=== PATIENT | female | born 1975 | race Two or more races ===

== ENCOUNTER 2019-10-02 12:20 | Inpatient (IN) | payer OTHER ==
[~2019-10-02] VITALS: Ht 157.5 cm; Wt 68.0 kg
--- NOTE | 2019-10-02 12:45 | NUR ---
cough, congestion, with shortness of breath x 7 days; c/o fever as well the patient takes PO motrin as needed; pt to bed 6, placed on monitor, noted with sob; placed on nc 4lpm sating above 95%. -cp, pending er provider alyson
[2019-10-02] MEDS ORDERED: CEFTRIAXONE 1GM BAG (ER ONLY) 1 GM/50 ML PIGGYBACK IV ONE (15:00)
[2019-10-02] MEDS ORDERED: AZITHROMYCIN 500 MG in IV D5W 250 ML IV SCH (15:00)
[2019-10-02] MEDS ORDERED: CEFTRIAXONE 2 G in IV D5W 100 ML IV ONE (15:00)
--- NOTE | 2019-10-02 15:21 | NUR ---
PAGED [facility].
[2019-10-02 15:57] LABS: BASOPHILS % (AUTO) 0.4 % (0.0-2.0); EOSINOPHILS % (AUTO) 0.2 % (0.0-6.0); HEMATOCRIT 37 % (33-45); HEMOGLOBIN 12.3 g/dL (11.5-14.8); LYMPHOCYTES # (AUTO) 0.7 /CMM (0.8-4.8); MEAN CORPUSCULAR HGB CONC 33 g/dl (31.0-36.0); MEAN CORPUSCULAR VOLUME 78 fL (82-100); MONOCYTES # (AUTO) 0.3 /CMM (0.1-1.30); MONOCYTES % (AUTO) 5.6 % (2.0-12.0); NEUTROPHILS # (AUTO) 4.9 /CMM (1.8-8.9); NEUTROPHILS % (AUTO) 81.8 % (43.0-81.0); PLATELET COUNT (AUTO) 145 /CMM (150-450); RED BLOOD CELL COUNT(AUTO) 4.75 MIL/uL (4.0-5.2)
[2019-10-02 16:19] LABS: CALCIUM, SERUM 8.9 mg/dL (8.5-10.1); CARBON DIOXIDE 27 mmol/L (21-32); CHLORIDE 102 mmol/L (98-107); CREATININE 0.8 mg/dL (0.6-1.3); GLUCOSE 117 mg/dL (74-106); POTASSIUM 3.5 mmol/L (3.5-5.1); SODIUM SERUM 140 mmol/L (136-145); UREA NITROGEN, BLOOD 9 mg/dL (7-18)
[2019-10-02 16:23] LABS: BILIRUBIN,TOTAL 0.3 mg/dL (0.2-1.0)
[2019-10-02 16:24] LABS: ALANINE AMINOTRANSFERASE 40 U/L (12-78); ALBUMIN 3.4 g/dL (3.4-5.0); ALKALINE PHOSPHATASE 111 U/L (46-116); ASPARTATE AMINOTRANSFERASE 25 U/L (15-37); B-TYPE NATRIURETIC PEPTIDE 89 PG/ML (0-125); TOTAL PROTEIN, SERUM 7.8 g/dL (6.4-8.2)
[2019-10-02 16:29] LABS: D-DIMER 0.91 mg/L(FEU (0.17-0.50)
[2019-10-02 16:32] LABS: BILIRUBIN,URINE Negative (NEGATIVE); BLOOD, URINE Large Ery/uL (NEGATIVE); COLOR,URINE Yellow (YELLOW); KETONES,URINE Negative (NEGATIVE); LEUKOCYTE ESTERASE ,URINE Negative (NEGATIVE); NITRITE, URINE Negative (NEGATIVE); PROTEIN,URINE 30 mg/dl (NEGATIVE); UGLUCOSE Negative (NEGATIVE); UROBILINOGEN,URINE 0.2 EU/dL (0.2)
[2019-10-02 16:34] LABS: APPEARANCE,URINE SLIGHTLY CLOUDY (CLEAR)
[2019-10-02 16:36] LABS: BACTERIA,URINE None seen /HPF (None Seen); RBC,URINE 81-100 /HPF (0-2); SQUAMOUS EPITHELIAL CELL,UR Few /HPF (None Seen); WBC,URINE 0-2 /HPF (0-3)
[2019-10-02] MEDS ORDERED: METO25TA20 PO (16:51)
[2019-10-02] MEDS ORDERED: LURA40TA PO (16:51)
[2019-10-02] MEDS ORDERED: ALOG25TA2 PO (16:51)
[2019-10-02] MEDS ORDERED: ATOR10TA PO (16:51)
[2019-10-02] MEDS ORDERED: METF-440 PO (16:51)
[2019-10-02] MEDS ORDERED: IBUP-1953 PO (16:51)
[2019-10-02] MEDS ORDERED: INSU100I26 SQ (16:51)
--- NOTE | 2019-10-02 17:06 | NUR ---
NURSING SUP GAVE 104.
[2019-10-02 17:15] LABS: CREATINE KINASE, TOTAL 45 U/L (26-192); FERRITIN 164 ng/mL (8-388)
[2019-10-02 17:17] LABS: C-REACTIVE PROTEIN 16.5 mg/dL (0.0-0.9)
[2019-10-02] MEDS ORDERED: LURA80TA PO (17:24)
--- NOTE | 2019-10-02 17:43 | NUR ---
REPORT GIVEN TO MELO MCCRAY FOR LUCIA PT WILL BE TRANSPORTED TO 1ST FLOOR
--- NOTE | 2019-10-02 17:45 | NUR ---
FLORAL ARRANGER NOTES RECEIVED PT FROM E.R. STAFF VIA WHEELCHAIR, ASSISTED TO BED, MADE COMFORTABLE, PT IS AWAKE, ALERT AND ORIENTED, MAINLY ROMANIAN SPEAKING, NO COMPLAINT OF PAIN, NOT IN DISTRESS, VITAL SIGNS TAKEN AND RECORDED, PLACED ON ISOLATION PRECAUTIONS, NEEDS ATTENDED, AWAITING ADMITTING ORDERS FROM MD.
[2019-10-02 18:00] VITALS: BP 130/68
[2019-10-02 18:50] VITALS: BP 127/62
--- NOTE | 2019-10-02 19:30 | NUR ---
RN OPENING NOTES, PATIENT AWAKE AT THIS TIME, A/O X4, ABLE TO VERBALIZED NEEDS AND CONCERNS, JAPANESE SPEAKING, ST IN TELE MONITOR WITH HR LOW 100S AT THIS TIME, BREATHING EVEN AND UNLABORED, NO S/S OF SOB/ACUTE DISTRESS NOTED AT THIS TIME, LEFT AC PIV LINE IN PLACED 18G PATENT AND INTACT, AMBULATORY, WITH BRP PRIVILEGES, ON ISOLATION PRECAUTIONS FOR R/O COVID 19, AWAITING FOR RESULTS, SAFETY MEASURES MAINTAINED, BED LOCKED AND LOWEST POSITION, CALL LIGHT WITHIN REACH, SIDE RAILS UP X, ALL NEEDS ATTENDED, WILL CONTINUE TO MONITOR PATIENT CLOSELY.
--- NOTE | 2019-10-02 19:40 | NUR ---
RN NOTES, PLACED PATIENT ON CONTINUOS O2 MACHINE TO MONITOR, AND PATIENT NOTED WITH SOB/COUGHING A LOT AND STATING HAVING TROUBLE BREATHING,PATIENT PLACED ON 2LMP VIA NC, WILL CONTINUE TO MONITOR CLOSELY.
[2019-10-02 20:00] VITALS: BP 119/77
--- NOTE | 2019-10-02 20:00 | NUR ---
RN NOTES, PATIENT STATES FEELING LITTLE BIT BETTER WITH O2, BUT STILL WITH SOB WHILE TAKING, WILL CONTINUE TO MONITOR CLOSELY.
[2019-10-02] MEDS: HYDROXYCHLOROQUINE 200 MG TABLET PO SCH (20:36)
--- NOTE | 2019-10-02 23:50 | NUR ---
RN NOTES Received patient transferred from [facility] to [facility] 203 via hospital bed. On O2 via NC @ 2LPN, no respiratory distress noted at this time. Patient denies any discomfort at this time. On tele monitor, with NSR noted. Kept on bed clean, dry and comfortable. On fall and aspiration precautions. Will continue to monitor accordingly.
--- NOTE | 2019-10-02 23:54 | NUR ---
RN NOTES, PATIENT TRANSFERRED TO [facility] 2 OVER FLOW ROOM 203, VIA BED WITH ALL ACLS PROTOCOL, AND O2 PATIENT A/O X4 NO CHANGE IN CONDITION, AWARE THAT SHES BEING TRANSFERRED TO ANOTHER FLOOR, NO SOB/ACUTE DISTRESS AT THIS TIME CONTINUE WITH PERSISTENT COUGH, SOB WHEN TALKING, AFEBRILE REPORT GIVEN TO MELO ARREGUIN WELL ENDORSED PATIENT FOR CONTINUITY GRIS CARE.
[2019-10-03] VITALS: BP 110/65
[2019-10-03 04:00] VITALS: BP 106/62
--- NOTE | 2019-10-03 06:26 | NUR ---
RN CLOSING NOTES Patient asleep, easily awaken. On O2 inhalation via NC @ 2LPM, saturating well. Patient denies any discomfort at this time. On tele with NSR noted. All nursing needs attended. Kept on bed clean, dry and comfortable. No new complaints made. Endorsed.
--- NOTE | 2019-10-03 07:26 | NUR ---
rn opening notes Patient received on 2L nasal cannula, no sob noted, a/o x4, L ac 18 gauge SL. Bed at the lowest setting, call light within reach, side rails up x2.
[2019-10-03 07:40] LABS: BASOPHILS % (AUTO) 0.3 % (0.0-2.0); EOSINOPHILS % (AUTO) 0.5 % (0.0-6.0); HEMATOCRIT 35 % (33-45); HEMOGLOBIN 11.9 g/dL (11.5-14.8); LYMPHOCYTES % (AUTO) 15.8 % (20.0-44.0); MEAN CORPUSCULAR HGB CONC 34 g/dl (31.0-36.0); MEAN CORPUSCULAR VOLUME 77 fL (82-100); MONOCYTES # (AUTO) 0.4 /CMM (0.1-1.30); NEUTROPHILS # (AUTO) 4.9 /CMM (1.8-8.9); NEUTROPHILS % (AUTO) 77.4 % (43.0-81.0); PLATELET COUNT (AUTO) 154 /CMM (150-450); RED BLOOD CELL COUNT(AUTO) 4.57 MIL/uL (4.0-5.2); WHITE BLOOD COUNT (AUTO) 6.3 K/uL (4.3-11.0)
[2019-10-03 08:01] LABS: CALCIUM, SERUM 8.8 mg/dL (8.5-10.1); CREATININE 0.7 mg/dL (0.6-1.3); MAGNESIUM 1.8 mg/dL (1.8-2.4); PHOSPHORUS 3.4 mg/dL (2.5-4.9); POTASSIUM 3.3 mmol/L (3.5-5.1)
[2019-10-03] MEDS ORDERED: POTASSIUM CHLORIDE 20 MEQ TAB.PRT.SR PO SCH (09:00)
[2019-10-03] MEDS: ACETAMINOPHEN 650 MG/20.3 ML UDC NG PRN ×2 (09:06→20:24)
[2019-10-03] MEDS: HYDROXYCHLOROQUINE 200 MG TABLET PO SCH ×2 (09:06→19:47)
[2019-10-03 09:54] LABS: CHOLESTEROL 136 mg/dL (<200); HDL CHOLESTEROL 47 mg/dL (40-60); IRON, SERUM 16 ug/dl (50-175); LDL 53 mg/dL (0-99); TOTAL IRON BINDING CAPACITY 245 ug/dl (250-450)
[2019-10-03 10:11] LABS: TRIGLYCERIDES 241 mg/dL (30-150)
[2019-10-03 12:30] VITALS: BP 106/60
[2019-10-03] MEDS: AZITHROMYCIN 500 MG in IV D5W 250 ML IV SCH (14:59)
[2019-10-03 15:30] VITALS: BP 123/72
[2019-10-03] MEDS: CEFTRIAXONE 1 G in IV D5W 50 ML IV SCH (16:27)
--- NOTE | 2019-10-03 18:19 | NUR ---
rn notes patient moved to 202 for negative air room.
--- NOTE | 2019-10-03 18:23 | NUR ---
rn closing notes Patient moved to 202-1. Patient is positive for COVID 19, remains on 2L nasal cannula, no sob noted. ambulatory with good balance. L AC 18 gauge SL. continue abx at this time. Bed at the lowest setting, call light within reach, side rails up x2. Will give report to NOC RN for LUCIA bedside.
--- NOTE | 2019-10-03 19:00 | NUR ---
RN OPENING NOTES Received patient awake on bed. On O2 inhalation via NC @ 2LPM, saturating well. With dry cough noted. Afebrile at this time. Kept on bed clean, dry and comfortable. On tele monitor with NSR noted. Call light within easy reach. On fall and aspiration precautions. Will continue to monitor accordingly.
--- NOTE | 2019-10-03 19:00 | NUR ---
RN NOTES Received patient A/O x4, awake on bed on O2 inhalation via NC @ 2LPM, saturating well. With complaints of headache, Tylenol given as ordered. On tele monitor with NSR noted. On negative pressure room, contact/airborne isolation. Kept on bed clean, dry and comfortable. Call light within easy reach. Will continue to monitor accordingly.
[2019-10-03 22:29] VITALS: BP 108/68
--- NOTE | 2019-10-03 23:50 | NUR ---
RN NOTES Received patient from [facility] transferred to [facility] 203 via hospital bed accompanied by 2 hospital staff. Patient complaint epigastric pain 01/26. Patient noted able to ambulate to bathroom without assistance needed. On NPO as ordered. With peripheral IV line RAC#20. Resume IN NV @ 100ml/hr as ordered. Administed Morphine for pain as ordered. Kept on bed clean, dry and comfortable. Call light within easy reach. On fall and aspiration precautions. Will continue to monitor accordingly. Addendum: 10/04/19 at 0026 by RODRÍGUEZ DURHAM RN WRONG ENTRY.
[2019-10-04] VITALS: BP 102/58
[2019-10-04] MEDS: ACETAMINOPHEN 650 MG/20.3 ML UDC NG PRN ×2 (02:59→23:10)
--- NOTE | 2019-10-04 06:33 | NUR ---
RN CLOSING NOTES Patient asleep, easily awaken. On O2 inhalation via NC @ 2 LPM, saturating 100%. With dry cough noted, patient claimed having headache when coughing a lot. PRN meds given as ordered. All nursing needs attended. Due meds given as ordered. Kept on bed clean, dry and comfortable. Call light within easy reach. On fall ans aspiration precautions. Endorsed.
[2019-10-04 06:38] LABS: BASOPHILS % (AUTO) 0.7 % (0.0-2.0); EOSINOPHILS % (AUTO) 2.5 % (0.0-6.0); HEMATOCRIT 36 % (33-45); HEMOGLOBIN 11.7 g/dL (11.5-14.8); LYMPHOCYTES # (AUTO) 1.5 /CMM (0.8-4.8); LYMPHOCYTES % (AUTO) 32.8 % (20.0-44.0); MEAN CORPUSCULAR HGB CONC 32 g/dl (31.0-36.0); MEAN CORPUSCULAR VOLUME 79 fL (82-100); MONOCYTES # (AUTO) 0.3 /CMM (0.1-1.30); MONOCYTES % (AUTO) 7.8 % (2.0-12.0); NEUTROPHILS # (AUTO) 2.5 /CMM (1.8-8.9); NEUTROPHILS % (AUTO) 56.2 % (43.0-81.0); PLATELET COUNT (AUTO) 181 /CMM (150-450); WHITE BLOOD COUNT (AUTO) 4.4 K/uL (4.3-11.0)
[2019-10-04 07:01] LABS: CALCIUM, SERUM 9.2 mg/dL (8.5-10.1); CREATININE 0.7 mg/dL (0.6-1.3); MAGNESIUM 1.9 mg/dL (1.8-2.4); PHOSPHORUS 3.9 mg/dL (2.5-4.9); POTASSIUM 3.9 mmol/L (3.5-5.1)
--- NOTE | 2019-10-04 07:30 | NUR ---
rn opening notes patient remains on 2L nasal cannula, no sob noted, regular diet with L AC 18 SL. Patient denies pain at this time. Bed at the lowest setting, call light within reach, side rails up x2.
[2019-10-04 08:00] VITALS: BP 88/56
[2019-10-04] MEDS: HYDROXYCHLOROQUINE 200 MG TABLET PO SCH ×2 (08:05→16:37)
--- NOTE | 2019-10-04 13:17 | NUR ---
rn notes patient able to ambulate on room air, minimal sob noted but did not desaturate. Saturated in the 95-98% during on room air at this time.
[2019-10-04] MEDS: SOD FERRIC GLUC 125 MG in IV NS 0.9% 100 ML IV SCH (14:17)
[2019-10-04] MEDS: AZITHROMYCIN 500 MG in IV D5W 250 ML IV SCH (15:25)
[2019-10-04] MEDS: CEFTRIAXONE 1 G in IV D5W 50 ML IV SCH (16:37)
--- NOTE | 2019-10-04 18:21 | NUR ---
rn closing notes patient remains on 4l nasal cannula, no sob noted, patient denies pain at this time. LAC 18 SL , patient able to take all medications. Patient remains in negative Bed at the lowest setting, call light within reach, side rails up x2. Will give report to NOC RN for LUCIA bedside.
--- NOTE | 2019-10-04 19:38 | NUR ---
RN NOTES RECEIVED PATIENT AWAKE , ALERT ORIENTED X4, SAFETY MEASURES IN PLACE, NO SIGNS OF ACUTE RESPIRATORY DISTRESS NOTED, DENIES ANY PAIN, CALL LIGHT WITH IN EASY REACH, BED IN LOW LOCKED POSITION, IV ACCESS INTACT AND PATENT, TELE MONITOR READS 89 AFIB CONTROLLED. NO RESTLESSNESS NOTED. ALL NEEDS ANTICIPATED, WILL CONTINUE TO MONITOR ACCORDINGLY.
[2019-10-04 20:00] VITALS: BP 109/72
[2019-10-04 20:30] VITALS: BP 109/72
[2019-10-05] VITALS: BP 106/61
[2019-10-05 00:34] VITALS: BP 106/62
--- NOTE | 2019-10-05 06:44 | NUR ---
RN NOTES ALL NEEDS ATTENDED AND MET, ABLE TO REST AND SLEPT AT INTERVALS, ,ORIENTED X4, SAFETY MEASURES IN PLACE, NO SIGNS OF ACUTE RESPIRATORY DISTRESS NOTED, DENIES ANY PAIN, CALL LIGHT WITH IN EASY REACH, BED IN LOW LOCKED POSITION, IV ACCESS INTACT AND PATENT, TELE MONITOR READS 80'S AFIB CONTROLLED. NO RESTLESSNESS NOTED. ALL NEEDS ANTICIPATED, WILL ENDORSE TO AM NURSE FOR CONTINUITY OF CARE.
--- NOTE | 2019-10-05 07:49 | NUR ---
EXECUTIVE OFFICER SPECIAL WARFARE TEAM OPENING NOTE PATIENT IN BED RESTING COMFORTABLY. PATIENT IN NO ACUTE DISTRESS. NO SOB NOTED. PATIENT BREATHING IS EVEN AND UNLABORED. PATIENT ON CARDIAC MONITORING READING SINUS RHYTHM HR 74 AT THIS TIME. PATIENT MAINTAINED ON ISOLATION PRECAUTIONS. PATIENT BED ALARM IS ON. SAFETY PRECAUTIONS IN PLACE. PATIENT BED IS LOCKED AND IN LOWEST POSITION. CALL LIGHT WITHIN REACH. WILL CONTINUE TO MONITOR.
[2019-10-05] MEDS: HYDROXYCHLOROQUINE 200 MG TABLET PO SCH ×2 (08:56→16:42)
[2019-10-05 09:05] LABS: BASOPHILS % (AUTO) 0.6 % (0.0-2.0); EOSINOPHILS % (AUTO) 4.8 % (0.0-6.0); HEMATOCRIT 37 % (33-45); HEMOGLOBIN 12.4 g/dL (11.5-14.8); LYMPHOCYTES # (AUTO) 1.2 /CMM (0.8-4.8); LYMPHOCYTES % (AUTO) 23.2 % (20.0-44.0); MEAN CORPUSCULAR HGB CONC 34 g/dl (31.0-36.0); MEAN CORPUSCULAR VOLUME 78 fL (82-100); MONOCYTES # (AUTO) 0.5 /CMM (0.1-1.30); MONOCYTES % (AUTO) 9.1 % (2.0-12.0); NEUTROPHILS # (AUTO) 3.3 /CMM (1.8-8.9); NEUTROPHILS % (AUTO) 62.3 % (43.0-81.0); PLATELET COUNT (AUTO) 242 /CMM (150-450); RED BLOOD CELL COUNT(AUTO) 4.74 MIL/uL (4.0-5.2); WHITE BLOOD COUNT (AUTO) 5.3 K/uL (4.3-11.0)
[2019-10-05 09:34] LABS: CALCIUM, SERUM 9.1 mg/dL (8.5-10.1); CREATININE 0.6 mg/dL (0.6-1.3); MAGNESIUM 1.8 mg/dL (1.8-2.4); PHOSPHORUS 3.4 mg/dL (2.5-4.9); POTASSIUM 3.7 mmol/L (3.5-5.1)
[2019-10-05] MEDS: ACETAMINOPHEN 650 MG/20.3 ML UDC NG PRN (12:54)
--- NOTE | 2019-10-05 13:18 | NUR ---
SOLUTION DEVELOPER NOTE PER RAE FROM DIETARY, SWITCH DIET TO CCHO DUE TO HISTORY OF DIABETES. INFORMED DR. WEI IF MODERATE SLIDING SCALE SHOULD BE PLACED. PER ORDER TO HAVE MODERATE SLIDING SCALE AND BLOOD SUGAR CHECKS.
[2019-10-05] MEDS ORDERED: DEXTROSE 50%-WATER 50 ML DISP.SYRIN IV PRN (13:30)
[2019-10-05] MEDS: SOD FERRIC GLUC 125 MG in IV NS 0.9% 100 ML IV SCH (14:37)
[2019-10-05] MEDS: AZITHROMYCIN 500 MG in IV D5W 250 ML IV SCH (15:52)
[2019-10-05 16:00] VITALS: BP 130/87
[2019-10-05] MEDS: BLOOD SUGAR DIAGNOSTIC 1 EACH STRIP VI SCH ×2 (16:42→21:29)
[2019-10-05] MEDS: INSULIN REGULAR, HUMAN 100 UNIT/ML 3 ML VIAL SQ PRN (16:52)
--- NOTE | 2019-10-05 16:53 | NUR ---
MAMMALOGY TEACHER NOTE PATIENT BLOOD SUGAR 190. PATIENT REFUSING REGULAR INSULIN 3 UNITS. EDUCATED RISKS VS BENEFIT. PATIENT CONTINUED TO REFUSE.
[2019-10-05] MEDS: CEFTRIAXONE 1 G in IV D5W 50 ML IV SCH (16:57)
--- NOTE | 2019-10-05 18:20 | NUR ---
LOOM REPAIRER NOTE FOLLOWED UP WITH DR. WEI REGARDING MED RECON. DR. WEI WAS MADE AWARE.
--- NOTE | 2019-10-05 18:23 | NUR ---
HEAD OF HUMAN RESOURCES CLOSING NOTE PATIENT IN BED RESTING COMFORTABLY. PATIENT IN NO ACUTE DISTRESS. NO SOB NOTED. PATIENT BREATHING IS EVEN AND UNLABORED. PATIENT ON CARDIAC MONITORING READING SINUS RHYTHM HR 84 WITH EPISODE OF BIGEMINY AT THIS TIME. PATIENT MAINTAINED ON ISOLATION PRECAUTIONS. PATIENT KEPT CLEAN, DRY AND COMFORTABLE THROUGHOUT SHIFT. NEEDS AND CONCERNS ADDRESSED. PATIENT BED ALARM IS ON. SAFETY PRECAUTIONS IN PLACE. PATIENT BED IS LOCKED AND IN LOWEST POSITION. CALL LIGHT WITHIN REACH. WILL ENDORSE CARE TO PM SHIFT FOR LUCIA.
--- NOTE | 2019-10-05 19:00 | NUR ---
RECEIVED PATIENT A/OX4 ISOLATION D/T CORVID + TEST. SMILING AND JOKING. SPEAKS OF GOING HOME IN THE AM. TALKING ON CELL PHONE AND LAUGHING AND SMILING.
[2019-10-05 20:00] VITALS: BP 115/79
[2019-10-05] MEDS: *INSULIN REGULAR(HUMULIN R)HUM 100 UNIT/ML VIAL SQ PRN (21:31)
--- NOTE | 2019-10-06 05:13 | NUR ---
SLEPT THRU THE NIGHT. NOTED UP TO THE BATHROOM AND THEN ABLE TO GO BACK TO BED BY HER SELF. GAIT STEADY. AFEBRILE THIS 12 HOURS. NOTE TAKING JUICE AND H20 WITHOUT PROBLEMS. ISOLATION MAINTAINED ORDERED.
[2019-10-06 06:54] LABS: BASOPHILS % (AUTO) 0.9 % (0.0-2.0); EOSINOPHILS % (AUTO) 6.5 % (0.0-6.0); HEMATOCRIT 36 % (33-45); LYMPHOCYTES # (AUTO) 1.4 /CMM (0.8-4.8); LYMPHOCYTES % (AUTO) 28.6 % (20.0-44.0); MEAN CORPUSCULAR HGB CONC 34 g/dl (31.0-36.0); MEAN CORPUSCULAR VOLUME 77 fL (82-100); MONOCYTES # (AUTO) 0.5 /CMM (0.1-1.30); MONOCYTES % (AUTO) 9.2 % (2.0-12.0); NEUTROPHILS # (AUTO) 2.7 /CMM (1.8-8.9); NEUTROPHILS % (AUTO) 54.8 % (43.0-81.0); PLATELET COUNT (AUTO) 289 /CMM (150-450); RED BLOOD CELL COUNT(AUTO) 4.65 MIL/uL (4.0-5.2)
[2019-10-06 07:11] LABS: CALCIUM, SERUM 9.2 mg/dL (8.5-10.1); CREATININE 0.5 mg/dL (0.6-1.3); MAGNESIUM 1.8 mg/dL (1.8-2.4); PHOSPHORUS 3.6 mg/dL (2.5-4.9); POTASSIUM 3.6 mmol/L (3.5-5.1)
--- NOTE | 2019-10-06 07:29 | NUR ---
FOOD MIXER OPENING NOTE PATIENT IN BED RESTING COMFORTABLY. PATIENT IN NO ACUTE DISTRESS. NO SOB NOTED. PATIENT BREATHING IS EVEN AND UNLABORED. PATIENT ON CARDIAC MONITORING READING SINUS RHYTHM HR 76 AT THIS TIME. PATIENT MAINTAINED ON ISOLATION PRECAUTIONS. PATIENT BED ALARM IS ON. SAFETY PRECAUTIONS IN PLACE. PATIENT BED IS LOCKED AND IN LOWEST POSITION. CALL LIGHT WITHIN REACH. WILL CONTINUE TO MONITOR.
[2019-10-06 08:00] VITALS: BP 117/69
[2019-10-06] MEDS: HYDROXYCHLOROQUINE 200 MG TABLET PO SCH ×2 (08:09→16:48)
[2019-10-06] MEDS: BLOOD SUGAR DIAGNOSTIC 1 EACH STRIP VI SCH ×4 (08:09→22:20)
[2019-10-06] MEDS: METOPROLOL TARTRATE 25 MG TABLET PO SCH ×2 (08:09→16:49)
[2019-10-06] MEDS: INSULIN REGULAR, HUMAN 100 UNIT/ML 3 ML VIAL SQ PRN ×3 (08:28→17:21)
[2019-10-06] MEDS: SOD FERRIC GLUC 125 MG in IV NS 0.9% 100 ML IV SCH (14:18)
[2019-10-06] MEDS: AZITHROMYCIN 500 MG in IV D5W 250 ML IV SCH (15:46)
[2019-10-06 16:00] VITALS: BP 132/81
[2019-10-06] MEDS: CEFTRIAXONE 1 G in IV D5W 50 ML IV SCH (16:48)
[2019-10-06] MEDS: ATORVASTATIN 10 MG TABLET PO SCH (17:10)
--- NOTE | 2019-10-06 19:03 | NUR ---
SMOKE AND FLAME SPECIALIST CLOSING NOTE PATIENT IN BED RESTING COMFORTABLY. PATIENT IN NO ACUTE DISTRESS. NO SOB NOTED. PATIENT BREATHING IS EVEN AND UNLABORED. PATIENT ON CARDIAC MONITORING READING SINUS RHYTHM HR 71. PATIENT MAINTAINED ON ISOLATION PRECAUTIONS. PATIENT KEPT CLEAN, DRY AND COMFORTABLE THROUGHOUT SHIFT. NEEDS AND CONCERNS ADDRESSED. PATIENT BED ALARM IS ON. SAFETY PRECAUTIONS IN PLACE. PATIENT BED IS LOCKED AND IN LOWEST POSITION. CALL LIGHT WITHIN REACH. WILL ENDORSE CARE TO PM SHIFT FOR LUCIA.
--- NOTE | 2019-10-06 19:40 | NUR ---
CLINICAL PRODUCT SPECIALIST NOTE: PATIENT RESTING IN BED, NO ACUTE DISTRESS NOTED. BREATHING EVEN AND UNLABORED, NO SOB NOTED. IV TO LEFT HAND IN PLACE. TELE READING SR 76. ISOLATION PRECAUTIONS OBSERVED. BED LOCKED AND IN LOWEST POSITION, CALL LIGHT IN REACH. WILL CONTINUE TO MONITOR.
[2019-10-06 20:45] VITALS: BP 118/69
[2019-10-06] MEDS ORDERED: INSULIN GLARGINE, 100 UNIT/ML CARTRIDGE SQ SCH (22:00)
[2019-10-06] MEDS: *INSULIN REGULAR(HUMULIN R)HUM 100 UNIT/ML VIAL SQ PRN (22:20)
--- NOTE | 2019-10-06 22:30 | NUR ---
MEDICAL AFFAIRS MANAGER NOTE: PATIENT BLOOD SUGAR LEVEL 190MG/DL, TO RECEIVE LANTUS 35 UNITS SUBCUTANEOUSLY PER MD AND 3 UNITS OF REGULAR INSULIN PER SLIDING SCALE. NO S/S OF HYPERGLYCEMIA NOTED. WILL CONTINUE TO MONITOR.
[2019-10-07 00:45] VITALS: BP 127/86
[2019-10-07 04:30] VITALS: BP 100/66
--- NOTE | 2019-10-07 06:30 | NUR ---
SENIOR SHAREPOINT ARCHITECT NOTE: PATIENT RESTING IN BED, NO ACUTE DISTRESS NOTED. BREATHING EVEN AND UNLABORED, NO SOB NOTED. IV TO LEFT HAND IN PLACE. TELE READING SR 80. PATIENT BLOOD SUGAR LEVEL 179MG/DL, 3 UNITS TO BE GIVEN PER SLIDING SCALE. ISOLATION PRECAUTIONS OBSERVED. BED LOCKED AND IN LOWEST POSITION, CALL LIGHT IN REACH. WILL ENDORSE TO DAY NURSE TO CONTINUE WITH PLAN OF CARE.
[2019-10-07 06:36] LABS: BASOPHILS % (AUTO) 0.5 % (0.0-2.0); EOSINOPHILS % (AUTO) 5.6 % (0.0-6.0); HEMATOCRIT 37 % (33-45); HEMOGLOBIN 12.3 g/dL (11.5-14.8); LYMPHOCYTES # (AUTO) 1.6 /CMM (0.8-4.8); LYMPHOCYTES % (AUTO) 22.2 % (20.0-44.0); MEAN CORPUSCULAR HGB CONC 33 g/dl (31.0-36.0); MEAN CORPUSCULAR VOLUME 77 fL (82-100); MONOCYTES # (AUTO) 0.6 /CMM (0.1-1.30); MONOCYTES % (AUTO) 8.6 % (2.0-12.0); NEUTROPHILS # (AUTO) 4.5 /CMM (1.8-8.9); NEUTROPHILS % (AUTO) 63.1 % (43.0-81.0); PLATELET COUNT (AUTO) 347 /CMM (150-450); RED BLOOD CELL COUNT(AUTO) 4.75 MIL/uL (4.0-5.2); WHITE BLOOD COUNT (AUTO) 7.2 K/uL (4.3-11.0)
[2019-10-07 06:52] LABS: CALCIUM, SERUM 9.6 mg/dL (8.5-10.1); CREATININE 0.7 mg/dL (0.6-1.3); MAGNESIUM 1.7 mg/dL (1.8-2.4); PHOSPHORUS 4.5 mg/dL (2.5-4.9); POTASSIUM 3.7 mmol/L (3.5-5.1)
[2019-10-07] MEDS: INSULIN REGULAR, HUMAN 100 UNIT/ML 3 ML VIAL SQ PRN ×3 (06:55→17:34)
[2019-10-07] MEDS: BLOOD SUGAR DIAGNOSTIC 1 EACH STRIP VI SCH ×3 (06:55→16:38)
[2019-10-07 07:19] LABS: BAND % (MANUAL) 4 % (0.0-5.0); EOSINOPHILS % (MANUAL) 4 % (0-4); LYMPHOCYTES % (MANUAL) 25 % (16-48); MONOCYTES % (MANUAL) 7 % (0-11.0); MYELOCYTES % 2 % (0-0); NEUTROPHILS % (MANUAL) 58 (42-76)
--- NOTE | 2019-10-07 07:28 | NUR ---
rn opening notes Patient received on room air, no sob noted, ambulatory, left hand 22 present. covid positive at this time. Bed at the lowest setting, call light within reach, side rails up x2.
[2019-10-07 08:00] VITALS: BP 136/75
[2019-10-07] MEDS: METOPROLOL TARTRATE 25 MG TABLET PO SCH ×2 (08:21→16:12)
[2019-10-07] MEDS: HYDROXYCHLOROQUINE 200 MG TABLET PO SCH (08:21)
[2019-10-07] MEDS: Magnesium 1GM/D5W 100ML PREMIX 100 ML IV SCH ×2 (09:49→11:17)
[2019-10-07] MEDS: SOD FERRIC GLUC 125 MG in IV NS 0.9% 100 ML IV SCH (14:00)
[2019-10-07 16:12] VITALS: BP 116/65
[2019-10-07] MEDS: ATORVASTATIN 10 MG TABLET PO SCH (17:39)
--- NOTE | 2019-10-07 18:50 | NUR ---
rn closing notes patient about to be discharged at this time. anthony given to FORTINO RN.
--- NOTE | 2019-10-07 19:03 | NUR ---
rn d/c notes Patient to be dc at this time. Patient has all belongings with her, medication, cell phone, money and paper work. She is aware of planning for discharge. Patient has a mask and some spare to be used later on. Patient is picked up by EMT's to be transferred to a hotel.
== END 2019-10-07 19:17 | disposition home or self-care (01) | DRG 720 ==
LOC: ER 12:20 → TELE1 17:06 → TELE2 23:47
PROVIDERS: ADMIT Student in an Organized Health Care Education/Training Program; ATTEND Nurse Practitioner Acute Care
DX: A41.89 Other specified sepsis (principal); U07.1 COVID-19; J96.01 Acute respiratory failure with hypoxia; E83.42 Hypomagnesemia; E11.9 Type 2 diabetes mellitus without complications; D50.9 Iron deficiency anemia, unspecified; E66.9 Obesity, unspecified; J12.89 Other viral pneumonia; E87.6 Hypokalemia; I10 Essential (primary) hypertension; Z68.27 Body mass index [BMI] 27.0-27.9, adult; N39.0 Urinary tract infection, site not specified
CPT/HCPCS: 36415; 71045-TC; 80048-TC; 80053-TC; 80061-TC; 81000-TC; 82550-TC; 82728-TC; 82962-TC; 83540-TC; 83605-TC; 83615-TC; 83735-TC; 83880; 84100-TC; 84484-TC; 84703-TC; 85025-TC; 85378-TC; 85730-TC; 86140-TC; 87040-TC; 87081-TC; 93307-TC; G0378; J0456; J0696; J1815; J2916; J3475; J7030; J7050; J7060